=== PATIENT | male | born 1960 ===

== ENCOUNTER 2017-09-11 18:16 | Emergency (ER) | payer OTHER ==
[~2017-09-11] VITALS: Ht 175.3 cm; Wt 133.8 kg
--- NOTE | 2017-09-11 18:37 | NUR ---
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
--- NOTE | 2017-09-11 19:22 | NUR ---
Patient discharged to home in stable conditon. Written and verbal after care instructions given. Patient verbalizes understanding of instructions.
== END 2017-09-11 19:26 | disposition home or self-care (01) ==
LOC: ER 18:16
DX: Z11.1 Encounter for screening for respiratory tuberculosis (principal)
CPT/HCPCS: 71010; 99283; A4663; J7030